=== PATIENT | male | born 1970 | race Two or more races ===

== ENCOUNTER 2023-02-18 06:32 | Emergency (ER) | payer OTHER ==
[~2023-02-18] VITALS: Ht 195.6 cm; Wt 111.1 kg
[2023-02-18] MEDS ORDERED: METFORMIN HCL500 MG (07:01)
== END 2023-02-18 10:16 | disposition home or self-care (01) ==
LOC: ER 06:32
DX: M47.812 Spondylosis without myelopathy or radiculopathy, cervical region (principal); R07.9 Chest pain, unspecified; Z88.8 Allergy status to other drugs, medicaments and biological substances